=== PATIENT | female | born 1970 | race African-American/Black ===

== ENCOUNTER 2019-08-28 21:40 | Emergency (ER) | payer SELFPAY ==
[~2019-08-28] VITALS: Ht 157.5 cm; Wt 74.8 kg
[2019-08-28] MEDS ORDERED: ACETAMINOPHEN 500 MG TAB PO ONE ×2 (22:22→22:30)
[2019-08-28] MEDS ORDERED: cloNIDine HCL 0.1 MG TAB PO ONE (22:30)
[2019-08-28] MEDS ORDERED: cloNIDine HCL 0.1 MG TAB ONE (22:32)
[2019-08-29 02:00] VITALS: BP 152/89
== END 2019-08-29 02:05 | disposition home or self-care (01) ==
LOC: ER 21:43
DX: S93.602A Unspecified sprain of left foot, initial encounter (principal); S93.402A Sprain of unspecified ligament of left ankle, initial encounter; I10 Essential (primary) hypertension; W19.XXXA Unspecified fall, initial encounter; Y93.89 Activity, other specified; Y99.8 Other external cause status; Y92.89 Other specified places as the place of occurrence of the external cause
CPT/HCPCS: 29515; 73610; 73630

== ENCOUNTER 2024-01-03 11:42 | Emergency (ER) | payer BC ==
[~2024-01-03] VITALS: Ht 154.9 cm; Wt 79.2 kg
[2024-01-03 13:41] VITALS: BP 148/91; PULSE 94; RESP 16; O2SAT 99
== END 2024-01-03 12:33 | disposition left against medical advice (07) ==
LOC: ER 11:58
DX: H92.01 Otalgia, right ear (principal); Z53.21 Procedure and treatment not carried out due to patient leaving prior to being seen by health care provider

== ENCOUNTER 2024-11-21 09:51 | Emergency (ER) | payer BC, OTHER ==
[~2024-11-21] VITALS: Ht 152.4 cm; Wt 84.4 kg
[2024-11-21 10:31] VITALS: BP 164/109; PULSE 106; RESP 18; TEMP 97.5; O2SAT 96
--- NOTE | 2024-11-21 10:31 | ED.PDOC ---
Back pain HPI HPI Comments 54-year-old female presents for work-related injury. 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 suddenly another cutting +stood into a desk at her hitting her in the right paralumbar region Pain is currently rated 10/10 Denies any history of cancer Denies fevers chills night sweats nausea vomiting unintentional weight loss Denies IV drug use history of HIV/TB Denies abdominal "tearing" pain Denies syncope Denies urinary incontinence or urinary changes Denies numbness tingling of the groin or inner thigh Denies previous back procedure or surgery Chief Complaint: Back Pain Time Seen by MD: 10:10 Primary Care Provider: FLOYD Reviewed Notes: Nurses Notes, Medications, Allergies Allergies: Coded Allergies: NO KNOWN ALLERGIES (Unverified , 08/28/19) Information Source: Patient Mode of Arrival: Ambulatory Past Medical History PAST MEDICAL HISTORY: HTN Surgical History: Denies all surgeries 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: No Pertinent 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 Family History Family History: Reviewed,noncontributory to illness Social History Smoker: Non-Smoker Alcohol: Occasionally Drugs: Denies Drug Use Lives In: Home All Other Systems: Reviewed and Negative (per hpi) Physical Exam General Appearance: No Apparent Distress, Normal HEENT: Normal ENT Inspection, Pharynx Normal, TMs Normal Neck: Full Range of Motion, Non-Tender, Normal, Normal Inspection Respiratory: Chest Non-Tender, Lungs Clear, No Accessory Muscle Use, No Respiratory Distress, Normal Breath Sounds Cardiovascular: No Murmur, No Gallop, Regular Rate/Rhythm Breast Exam: Deferred Gastrointestinal: No Organomegaly, Non Tender, No Pulsatile Mass, Normal Bowel Sounds, Soft Genitalia: Deferred Pelvic: Deferred Rectal: Deferred Extremities: No calf tenderness, Normal capillary refill, Normal inspection, Normal range of motion, Non-tender, No pedal edema Musculoskeletal : Extremity Location: Back (No gross abnormality on inspection. No step- offs.) Apperance: Normal Neurologic: Alert, No Motor Deficits, Normal Affect, Normal Mood, No Sensory Deficits Cerebellar Function: Normal Reflexes: Normal Skin: Dry, Normal Color, Warm Lymphatic: No Adenopathy Was a procedure done? Was a procedure done?: No Back Pain Differential Dx Differential Diagnosis: Musculoskeletal Pain X-Ray, Labs, Meds, VS Vital Signs Date Time Temp Pulse Resp B/P (MAP) Pulse Ox O2 Delivery O2 Flow Rate FiO2 11/21/24 10:31 106 18 96 Room Air 11/21/24 10:31 97.5 106 18 164/109 (127) 96 97.5 11/21/24 09:59 97.5 106 18 164/109 (127) 96 97.5 Current Medications Medications (Trade) Dose Ordered Sig/Huseyin Route Start Time Stop Time Status Last Admin Ibuprofen (Motrin Tablet) 600 mg ONCE ONCE PO 11/21/24 10:30 11/21/24 10:31 DC 11/21/24 10:36 PATIENT: JACLYN CRYSTALCCT: [id number]: [id number] : 1970 LOC: ER ROOM / BED: / AGE / SEX: 54 / F ADM STATUS: REG ER SERVICE 1029 ORDERING PHYSICIAN: RONDA GUTIERREZ CALCULATOR OPERATOR PROCEDURE(s): LUMB2 - LUMBAR SPINE 3 VIEW REASON: R/o fracture ORDER NUMBER(s): [id number], ACCESSION NUMBER(s): [id number] EXAM: XY LUMBAR SPINE 3 VIEW HISTORY: R/o fracture COMPARISON: None TECHNIQUE: AP and lateral views of the lumbar spine and spot lateral of the lumbosacral junction were performed. FINDINGS: No fracture or listhesis of the lumbar spine. There is mild lumbar degenerative disc disease. IMPRESSION: Mild degenerative changes of the lumbar spine without evidence of fracture. ATED BY: GOYO ROWLEY MD DICTATED DATE/TIME: 11/21/24 105 SIGNED BY: GOYO ROWLEY MD SIGNED DATE/TIME: 11/21/24 105 CC: X-Ray, Labs, Meds, VS Comment I considered acute spinal fracture, vertebral osteomyelitis however this is less likely as the patient does not present with lower back pain red flags symptoms. Presentation most consistent with nonemergent musculoskeletal etiology. Disposition: Discharge. Strict return precautions discussed with the patient with full understanding. Supportive care advised (rest, ice, heat, NSAIDs, stretching exercises) Massage muscles with cold pack or ice for 20 minutes 4 times per day. Usually most useful if there is swelling during the first 48 hours Heating pad on the most painful area for 20 minutes to relieve muscle spasm Sleep and the most comfortable sleeping position (usually on the side with knees bent) Light stretching, no strenuous activity, avoid frequent bending, avoid carrying heavy objects Return precautions discussed including Inability to walk/bear weight Paresthesia/weakness/leg pain Fecal/urinary incontinence Any worsening symptoms On reevaluation, patient had symptomatic improvement. Patient is stable for discharge at this time. External notes reviewed. Test results and diagnostic imaging interpreted. All diagnostic findings, discharge care, education and instructions provided Follow-up with PCP in 2 to 3 days Patient verbalized understanding and agreed to treatment plan Vital signs stable, afebrile, no acute distress noted Patient ambulatory with strong steady gait Advised to return precautions for any new or worsening symptoms, return to ER immediately for re-evaluation Patient is aware that the purpose of this visit was for an acute medical emergency requiring emergent stabilization. Chronic conditions, including malignancies have not been ruled out. Patient is instructed to follow up with PCP as directed and discharge instructions for continued care and workup. If unable to arrange follow-up, patient is to return to the emergency department for reassessment. Patient (parent or legal guardian if applicable) was given verbal and written discharge instructions and acknowledges understanding. Time of 1ST Reevaluation: 11:10 Reevaluation 1ST: Improved Patient Education/Counseling: Diagnosis, Treatment Family Education/Counseling: Diagnosis, Treatment Departure 1 Departure Time of Disposition: 11:13 Impression: Primary Impression: Back pain Qualified Codes: M54.50 - Low back pain, unspecified Disposition: HOME / SELF CARE / HOMELESS Condition: Fair Critical Care Note Critical Care Time?: No Stability Stability form required: No Heart Score Heart Score: Heart Score Response (Comments) Value History N/A 0 EKG N/A 0 Age N/A 0 Risk Factors N/A 0 Troponin N/A 0 Total 0 RONDA GUTIERREZ CALCULATOR OPERATOR Nov 21, 2024 10:31
[2024-11-21] MEDS: IBUPROFEN 600 MG TAB PO ONE (10:36)
--- NOTE | 2024-11-21 10:57 | DVH ---
EXAM: XY LUMBAR SPINE 3 VIEW HISTORY: R/o fracture COMPARISON: None TECHNIQUE: AP and lateral views of the lumbar spine and spot lateral of the lumbosacral junction were performed. FINDINGS: No fracture or listhesis of the lumbar spine. There is mild lumbar degenerative disc disease. IMPRESSION: Mild degenerative changes of the lumbar spine without evidence of fracture.
[2024-11-21] MEDS ORDERED: IBUP1TAB5 PO (11:18)
[2024-11-21] MEDS ORDERED: METH-1181 PO (11:18)
== END 2024-11-21 11:16 | disposition home or self-care (01) ==
LOC: ER 09:51
DX: M54.50 Low back pain, unspecified (principal); I10 Essential (primary) hypertension
CPT/HCPCS: 72100